=== PATIENT | female | born 1940 | race Caucasian/White ===

== ENCOUNTER 2021-06-19 16:25 | Emergency (ER) | payer MEDICARE, BC ==
[~2021-06-19 16:25] MED LIST: ASPIRIN81 MG PO; COLACE 100MG C100 MG PO; COREG 25MG TAB25 MG PO; FAMOTIDINE20 MG PO; FERROUS SULFAT325 M2 PO; K-DUR TAB 10 M10 MEQ PO; LEVAQUIN500 MG PO; LIDODERM PATCH 51 EA EXT; NORCO 5-325 TA1 EACH PO; PLAVIX 75 MG TA75 MG PO; PROCARDIA XL 3030 MG PO; SENNA8.6 MG PO; SIMVASTATIN10 MG PO; SULFAMETHOXAZO1 EACH PO; VENTOLIN/PROVE0.5 ML INH; ZOFRAN4 MG PO
[2021-06-19 18:10] LABS: HEMOGLOBIN 11.5 gm/dl (12.3-15.3); RED BLOOD COUNT 4.11 M/UL (4.00-5.10); WHITE BLOOD COUNT 4.5 K/UL (4.5-11.0)
[2021-06-19] MEDS ORDERED: PHENERGAN 12.12.5 M1 PO (19:46)
== END 2021-06-19 20:35 | disposition home or self-care (01) ==
LOC: ER1 16:25
PROVIDERS: Emergency Medicine
DX: U07.1 COVID-19 (principal); I11.0 Hypertensive heart disease with heart failure; I50.9 Heart failure, unspecified; J44.9 Chronic obstructive pulmonary disease, unspecified; Z79.82 Long term (current) use of aspirin; Z79.01 Long term (current) use of anticoagulants
CPT/HCPCS: 0240U; 36600; 71045; 80053; 82550; 82553; 82803; 83690; 83735; 83880; 84100; 84484; 85025; 85610; 85730; 93005; 99284

== ENCOUNTER → 2021-06-21 | Outpatient (CLI) | payer MEDICARE, BC ==
[~2021-06-21] VITALS: Ht 154.9 cm; Wt 59.0 kg
[~2021-06-21] MED LIST changes: +PHENERGAN 12.12.5 M1 PO
== END ==
LOC: EROP 12:44
DX: U07.1 COVID-19 (principal); Z23 Encounter for immunization; J98.4 Other disorders of lung; I11.9 Hypertensive heart disease without heart failure; Z86.73 Personal history of transient ischemic attack (TIA), and cerebral infarction without residual deficits
CPT/HCPCS: M0247; Q0247

== ENCOUNTER 2021-06-27 10:53 | Inpatient (IN) | payer MEDICARE, BC ==
[~2021-06-27] VITALS: Ht 154.9 cm; Wt 59.0 kg
[~2021-06-27 10:53] MED LIST changes: -ASPIRIN81 MG PO; +AUGMENTIN 500-1 EACH PO; -COREG 25MG TAB25 MG PO; -FERROUS SULFAT325 M2 PO
[2021-06-27 11:34] LABS: HEMOGLOBIN 12.8 gm/dl (12.3-15.3); RED BLOOD COUNT 4.66 M/UL (4.00-5.10); WHITE BLOOD COUNT 9.9 K/UL (4.5-11.0)
[2021-06-27 12:03] LABS: BUN/CREATININE RATIO 13 (0-10)
[2021-06-27] MEDS ORDERED: ASPIRIN EC81 MG PO (12:49)
[2021-06-27] MEDS ORDERED: FERROUS GLUCON324 M1 PO (12:51)
[2021-06-27] MEDS ORDERED: COREG 12.5MG12.5 MG PO (12:51)
[2021-06-27] MEDS ORDERED: POTASSIUM CHLO20 ME1 PO (17:11)
[2021-06-27] MEDS ORDERED: LASIX40 MG PO (17:12)
[2021-06-27] MEDS ORDERED: PROTONIX 40 MG40 M1 PO (17:13)
[2021-06-27] MEDS ORDERED: CRESTOR10 MG PO (17:13)
[2021-06-27] MEDS ORDERED: ZOFRAN 4 MG TAB4 MG PO (17:13)
[2021-06-27] MEDS ORDERED: PROAIR DIGIHAL90 MCG INH (17:14)
[2021-06-27] MEDS ORDERED: BREZTRI AEROS10.7 GM INH (17:14)
[2021-06-27] MEDS ORDERED: VITAMIN D325 MCG PO (17:15)
[2021-06-27] MEDS ORDERED: VITAMIN C500 M4 PO (17:15)
[2021-06-27] MEDS ORDERED: CALCIUM500 MG PO (17:15)
[2021-06-27] MEDS ORDERED: ZINC50 M2 PO (17:16)
[2021-06-28 07:39] LABS: HEMOGLOBIN 11.1 gm/dl (12.3-15.3)
[2021-06-28 07:43] LABS: RED BLOOD COUNT 4.02 M/UL (4.00-5.10); WHITE BLOOD COUNT 4.6 K/UL (4.5-11.0)
[2021-06-28 10:38] LABS: ACINETOBACTER BAUMANNII Not Detected (Negative); CANDIDA ALBICANS Not Detected (Negative); CANDIDA KRUSEI Not Detected (Negative); CANDIDA TROPICALIS Not Detected (Negative); ENTEROCOCCUS Not Detected (Negative); ESCHERICHIA COLI Not Detected (Negative); HAEMOPHILUS INFLUENZAE Not Detected (Negative); KLEBSIELLA OXYTOCA Not Detected (Negative); KLEBSIELLA PNEUMONIAE Not Detected (Negative); KPC-CARBAPENEM-RESISTANCE GENE Not Detected (Negative); PROTEUS Not Detected (Negative); PSEUDOMONAS AERUGINOSA Not Detected (Negative); SERRATIA MARCESANS Not Detected (Negative); STAPHYLOCOCCUS AUREUS Not Detected (Negative); STREP AGALACTIAE (GROUP B) Not Detected (Negative); STREP PYOGENES (GROUP A) Not Detected (Negative); STREPTOCOCCUS Not Detected (Negative); vanA/B (VANCOMYCIN RESIST GENE Not Detected (Negative)
[2021-06-28 12:00] LABS: STAPHYLOCOCCUS DETECTED (Negative); mecA (METHICILLIN RESIST GENE DETECTED (Negative)
--- NOTE | 2021-06-29 13:10 | NUR ---
SPOKE WITH PATIENT'S DAUGHTER ON THE PHONE REGARDING POC.
[2021-06-30] MEDS ORDERED: METHOCARBAMOL500 MG PO (09:22)
[2021-06-30] MEDS ORDERED: MAGIC MOUTHWASH PO (09:22)
--- NOTE | 2021-07-01 05:59 | NUR ---
VERIFIED VANC TROUGH WITH PHARMACY DINAH SAID GIVE 0600 DOSE
--- NOTE | 2021-07-01 15:39 | NUR ---
PT CONTINUES TO BE CONFUSED SHE HAS REMOVED THE IV IN HER RIGHT HAND. SHE REFUSES SOME CARE AND SOME MEDICATIONS.
--- NOTE | 2021-07-01 21:17 | NUR ---
[facility] PICKED UP PATIENT FOR TRANSPORT TO HOME, FAMILY NOTIFIED
== END 2021-07-01 20:59 | disposition home health service (06) | DRG 177 ==
LOC: ER1 10:53 → 3 EAST 15:11 → MED SURG 4 15:11 → CDU 15:11 → 3 EAST 15:11 → CDU 15:19 → 3 EAST 19:20 → MED SURG 4 06-28 17:46
PROVIDERS: Emergency Medicine; ADMIT Family Medicine
PROC: 8E0ZXY6 Isolation (ICD-10-PCS; principal; 2021-06-27)
PROC: XW033E5 Introduction of Remdesivir Anti-infective into Peripheral Vein, Percutaneous Approach, New Technology Group 5 (ICD-10-PCS; 2021-06-27)
PROC: 3E0333Z Introduction of Anti-inflammatory into Peripheral Vein, Percutaneous Approach (ICD-10-PCS; 2021-06-27)
PROC: B24BZZZ Ultrasonography of Heart with Aorta (ICD-10-PCS; 2021-06-29)
DX: U07.1 COVID-19 (principal); J12.82 Pneumonia due to coronavirus disease 2019; J96.21 Acute and chronic respiratory failure with hypoxia; J15.9 Unspecified bacterial pneumonia; G93.41 Metabolic encephalopathy; S32.010A Wedge compression fracture of first lumbar vertebra, initial encounter for closed fracture; S22.070A Wedge compression fracture of T9-T10 vertebra, initial encounter for closed fracture; S22.080A Wedge compression fracture of T11-T12 vertebra, initial encounter for closed fracture; J44.0 Chronic obstructive pulmonary disease with (acute) lower respiratory infection; I13.0 Hypertensive heart and chronic kidney disease with heart failure and stage 1 through stage 4 chronic kidney disease, or unspecified chronic kidney disease; J44.1 Chronic obstructive pulmonary disease with (acute) exacerbation; D64.9 Anemia, unspecified; N18.30 Chronic kidney disease, stage 3 unspecified; F03.90 Unspecified dementia, unspecified severity, without behavioral disturbance, psychotic disturbance, mood disturbance, and anxiety; M48.061 Spinal stenosis, lumbar region without neurogenic claudication; W01.0XXA Fall on same level from slipping, tripping and stumbling without subsequent striking against object, initial encounter; B95.7 Other staphylococcus as the cause of diseases classified elsewhere; I50.9 Heart failure, unspecified; Z86.73 Personal history of transient ischemic attack (TIA), and cerebral infarction without residual deficits; Z79.899 Other long term (current) drug therapy; Z90.710 Acquired absence of both cervix and uterus; Z79.82 Long term (current) use of aspirin
CPT/HCPCS: ECHO; 0240U; 36415; 70450; 71045; 71250; 72125; 72128; 72131; 72146; 72148; 72192; 73030; 80048; 80202; 81001; 82550; 82553; 83605; 83735; 83874; 83880; 84484; 85025; 87040; 87077; 87150; 87186; 93005; 93306; 94640; 94664; 94760; 96374; 96375; 97110-GP-CQ; 97162; 97166; 97530-GP-CQ; 99285; J0248; J1100; J1644; J1940; J2270; J2405; J3370; J7030; J7070

== ENCOUNTER 2021-07-30 20:29 | Inpatient (IN) | payer MEDICARE, BC ==
[~2021-07-30] VITALS: Ht 157.5 cm; Wt 53.5 kg
[~2021-07-30 20:29] MED LIST changes: +ASPIRIN EC81 MG PO; +BREZTRI AEROS10.7 GM INH; +CALCIUM500 MG PO; +COREG 12.5MG12.5 MG PO; +CRESTOR10 MG PO; +FERROUS GLUCON324 M1 PO; +LASIX40 MG PO; +MAGIC MOUTHWASH PO; +METHOCARBAMOL500 MG PO; +POTASSIUM CHLO20 ME1 PO; +PROAIR DIGIHAL90 MCG INH; +PROTONIX 40 MG40 M1 PO; +VITAMIN C500 M4 PO; +VITAMIN D325 MCG PO; +ZINC50 M2 PO; +ZOFRAN 4 MG TAB4 MG PO
[2021-07-30 21:26] LABS: HEMOGLOBIN 12.4 gm/dl (12.3-15.3); RED BLOOD COUNT 4.46 M/UL (4.00-5.10); WHITE BLOOD COUNT 16.4 K/UL (4.5-11.0)
[2021-07-30 22:15] LABS: BUN/CREATININE RATIO 17 (0-10)
[2021-07-31 03:42] LABS: HEMOGLOBIN 10.7 gm/dl (12.3-15.3)
[2021-07-31 03:54] LABS: RED BLOOD COUNT 3.76 M/UL (4.00-5.10); WHITE BLOOD COUNT 9.2 K/UL (4.5-11.0)
[2021-07-31] MEDS ORDERED: CALCIUM 500 +1 EAC5 PO (11:05)
[2021-07-31] MEDS ORDERED: TRULANCE3 MG PO (11:07)
[2021-07-31] MEDS ORDERED: CETIRIZINE HCL10 MG PO (11:08)
[2021-08-02 02:37] LABS: RED BLOOD COUNT 3.71 M/UL (4.00-5.10)
[2021-08-02 02:38] LABS: WHITE BLOOD COUNT 6.1 K/UL (4.5-11.0)
[2021-08-03 04:09] LABS: HEMOGLOBIN 11.2 gm/dl (12.3-15.3); WHITE BLOOD COUNT 6.5 K/UL (4.5-11.0)
[2021-08-03 04:22] LABS: RED BLOOD COUNT 4.12 M/UL (4.00-5.10)
[2021-08-05 04:01] LABS: HEMOGLOBIN 10.6 gm/dl (12.3-15.3); RED BLOOD COUNT 3.88 M/UL (4.00-5.10)
[2021-08-05] MEDS ORDERED: FUROSEMIDE20 MG PO (12:25)
[2021-08-05] MEDS ORDERED: LISINOPRIL5 MG PO (12:25)
[2021-08-05] MEDS ORDERED: IPRAT-ALBUT 0.5-3 ML NEB (12:25)
[2021-08-05] MEDS ORDERED: ACETAZOLAMIDE250 MG PO (12:25)
--- NOTE | 2021-08-05 14:46 | NUR ---
REPORT CALLED AND FAXED TO HOME [facility]ALTH WITH PROFESSIONAL, SPOKE WITH TESHA.
== END 2021-08-05 16:32 | disposition home or self-care (01) | DRG 291 ==
LOC: ER1 20:29 → CDU 07-31 01:33 → MED SURG 4 07-31 01:33
PROVIDERS: Family Medicine; Internal Medicine Infectious Disease; ADMIT Internal Medicine
DX: I50.33 Acute on chronic diastolic (congestive) heart failure (principal); J96.21 Acute and chronic respiratory failure with hypoxia; J96.22 Acute and chronic respiratory failure with hypercapnia; J44.1 Chronic obstructive pulmonary disease with (acute) exacerbation; J44.0 Chronic obstructive pulmonary disease with (acute) lower respiratory infection; J20.9 Acute bronchitis, unspecified; B96.3 Hemophilus influenzae [H. influenzae] as the cause of diseases classified elsewhere; N18.30 Chronic kidney disease, stage 3 unspecified; Z20.822 Contact with and (suspected) exposure to COVID-19; E87.6 Hypokalemia; N20.0 Calculus of kidney; K44.9 Diaphragmatic hernia without obstruction or gangrene; K57.90 Diverticulosis of intestine, part unspecified, without perforation or abscess without bleeding; F03.90 Unspecified dementia, unspecified severity, without behavioral disturbance, psychotic disturbance, mood disturbance, and anxiety; Z66 Do not resuscitate; K59.09 Other constipation; R13.10 Dysphagia, unspecified; Z90.710 Acquired absence of both cervix and uterus; Z86.73 Personal history of transient ischemic attack (TIA), and cerebral infarction without residual deficits
CPT/HCPCS: 36415; 36600; 71045; 74230; 80048; 80053; 82550; 82553; 82607; 82803; 83605; 83735; 83880; 84443; 84484; 85025; 85610; 87040; 87070; 87077; 87205; 92610; 92611-GN; 93005; 94640; 94645; 94664; 94760; 96365; 96366; 96367; 96375; 97116-GP-CQ; 97162; 97166; 97530-GP-CQ; 99285; J0456; J1940; J2270; J2405; J2543; J2920; J2930; J7030; Q9967; U0002

== ENCOUNTER 2021-09-07 11:51 | Inpatient (IN) | payer MEDICARE, BC ==
[~2021-09-07] VITALS: Ht 152.4 cm; Wt 54.4 kg
[~2021-09-07 11:51] MED LIST changes: +ACETAZOLAMIDE250 MG PO; +CALCIUM 500 +1 EAC5 PO; +CETIRIZINE HCL10 MG PO; +FUROSEMIDE20 MG PO; +IPRAT-ALBUT 0.5-3 ML NEB; +LISINOPRIL5 MG PO; +TRULANCE3 MG PO
[2021-09-07 13:10] LABS: HEMOGLOBIN 12.8 gm/dl (12.3-15.3); RED BLOOD COUNT 4.63 M/UL (4.00-5.10); WHITE BLOOD COUNT 7.3 K/UL (4.5-11.0)
[2021-09-07 13:40] LABS: BUN/CREATININE RATIO 19 (0-10)
[2021-09-08 05:46] LABS: HEMOGLOBIN 10.5 gm/dl (12.3-15.3); RED BLOOD COUNT 3.75 M/UL (4.00-5.10); WHITE BLOOD COUNT 5.5 K/UL (4.5-11.0)
[2021-09-09 05:13] LABS: HEMOGLOBIN 10.4 gm/dl (12.3-15.3); RED BLOOD COUNT 3.75 M/UL (4.00-5.10); WHITE BLOOD COUNT 6.1 K/UL (4.5-11.0)
--- NOTE | 2021-09-09 19:00 | NUR ---
PATIENT ROOM ACROSS FROM NURSES STATION. UPON ASSESSMENT PATIENT NOTED TO NOT HAVE BED ALARM ON. PATIENT HAS CONFUSION AND AGITAION NOTED. PATIENT YELLING FOR DAUGHTER, VOICES SHE NEEDS TO "GO TO THE BATHROOM" PATIENT VOICES SHE "NEEDS TO POOP". STRIP ALARM PLACED ON BED, PATIENT PLACED IN YELLOW GOWN AND SLIPPERS FOR FALL PRECAUTIONS, BED LOWEST TO FLOOR. ITEMS AND CALL LIGHT WITHIN REACH. PATIENT PLACED ON BEDPAN DUE TO BEDREST ORDER PER DAYSHIFT RN. PATIENT WITHIN VIEW OF NURSES STATION.
[2021-09-10 07:19] LABS: HEMOGLOBIN 10.8 gm/dl (12.3-15.3); RED BLOOD COUNT 3.84 M/UL (4.00-5.10)
[2021-09-10 07:28] LABS: WHITE BLOOD COUNT 9.7 K/UL (4.5-11.0)
[2021-09-11 02:56] LABS: HEMOGLOBIN 11.7 gm/dl (12.3-15.3); RED BLOOD COUNT 4.19 M/UL (4.00-5.10); WHITE BLOOD COUNT 9.6 K/UL (4.5-11.0)
[2021-09-11 03:17] LABS: BUN/CREATININE RATIO 12 (0-10)
[2021-09-11] MEDS ORDERED: QUETIAPINE FUMA25 MG PO (10:47)
[2021-09-11] MEDS ORDERED: NITROFURANTOIN100 MG PO (10:51)
--- NOTE | 2021-09-11 11:02 | NUR ---
1102- PT PULLED CATHETAR OUT. NOTIFIED DR. HUNTER. HE STATED TO LEAVE CATHETER OUT PT IS DISCHARGING HOME TODAY WITH HOSPICE.
== END 2021-09-11 19:08 | DRG 682 ==
LOC: ER1 11:51 → M/S 14:17 → CDU 14:17 → M/S 16:46
PROVIDERS: Family Medicine; Internal Medicine; Physician Assistant; ADMIT Internal Medicine
DX: N17.9 Acute kidney failure, unspecified (principal); E43 Unspecified severe protein-calorie malnutrition; G93.41 Metabolic encephalopathy; I13.0 Hypertensive heart and chronic kidney disease with heart failure and stage 1 through stage 4 chronic kidney disease, or unspecified chronic kidney disease; J96.11 Chronic respiratory failure with hypoxia; N30.00 Acute cystitis without hematuria; E87.0 Hyperosmolality and hypernatremia; I50.32 Chronic diastolic (congestive) heart failure; Z16.21 Resistance to vancomycin; Z20.822 Contact with and (suspected) exposure to COVID-19; Z66 Do not resuscitate; F03.90 Unspecified dementia, unspecified severity, without behavioral disturbance, psychotic disturbance, mood disturbance, and anxiety; K44.9 Diaphragmatic hernia without obstruction or gangrene; E87.6 Hypokalemia; I44.7 Left bundle-branch block, unspecified; J44.9 Chronic obstructive pulmonary disease, unspecified; E86.0 Dehydration; N18.30 Chronic kidney disease, stage 3 unspecified; R62.7 Adult failure to thrive; Z99.81 Dependence on supplemental oxygen; Z86.73 Personal history of transient ischemic attack (TIA), and cerebral infarction without residual deficits; Z87.442 Personal history of urinary calculi; Z90.710 Acquired absence of both cervix and uterus; Z98.890 Other specified postprocedural states; S22.070S Wedge compression fracture of T9-T10 vertebra, sequela; S22.080S Wedge compression fracture of T11-T12 vertebra, sequela; S22.050S Wedge compression fracture of T5-T6 vertebra, sequela; S32.040S Wedge compression fracture of fourth lumbar vertebra, sequela; S32.010S Wedge compression fracture of first lumbar vertebra, sequela; Z79.899 Other long term (current) drug therapy; Z68.23 Body mass index [BMI] 23.0-23.9, adult
CPT/HCPCS: 36415; 36600; 70450; 71045; 80048; 80053; 81001; 82550; 82553; 82607; 82803; 83605; 83735; 84100; 84439; 84443; 84484; 85025; 86140; 87077; 87086; 87186; 93005; 94640; 94664; 94760; 96374; 97110-GP-CQ; 97162; 97530-GP-CQ; 99285; J0696; J1650; J2020; J2060; J2270; J2405; J3370; J3411; J3480; J7070; U0002